=== PATIENT | male | born 1970 | race Caucasian/White ===

== ENCOUNTER 2020-05-02 15:15 | Inpatient (IN) | payer OTHER ==
[~2020-05-02] VITALS: Ht 180.3 cm; Wt 107.1 kg
[~2020-05-02 15:15] MED LIST: ARIP30TA4 PO; BUPR300T49 PO; RAPID FLOW PO; SIMV40TA20 PO
[2020-05-02] MEDS ORDERED: MELOXICAM (15:51)
[2020-05-02] MEDS ORDERED: TAMS-11 PO (15:51)
--- NOTE | 2020-05-02 15:56 | NUR ---
PT REPORTS FALLING ON A ORACIO NAIL ON WEDNESDAY AND WENT TO ON WEDNESDAY TO GET A TETANUS SHOT. PT STATES "I WENT BACK TO TODAY AND THEY GAVE ME A SHOT OF AN ANTIBIOTIC IN MY BUTT". HE ALSO REPORTS THAT SENT HIM TO COME TO THIS ER BECAUSE HE WOULD NEED IV ANTIBIOTICS"
--- NOTE | 2020-05-02 16:46 | NUR ---
PT AMBULATED TO RESTROOM.
[2020-05-02] MEDS ORDERED: SODIUM CHLORIDE FLUSH 10ML SYR IVF ONE (17:00)
[2020-05-02] MEDS ORDERED: VANCOMYCIN PER PHARMACY MC ONE (17:00)
[2020-05-02] MEDS ORDERED: DIPH,PERTUSS(ACELL),TET VAC/PF 0.5 ML IM-VACC ONE (17:00)
[2020-05-02] MEDS ORDERED: VANCOMYCIN 2,500 MG in SODIUM CHLORIDE 0.9% 500 ML IV ONE (17:00)
[2020-05-02 17:21] LABS: ALBUMIN 3.9 g/dL (3.4-5.0); ANION GAP 5 mmol/L (5-15); CHLORIDE 103 mmol/L (98-107); CREATININE 1.21 mg/dL (0.7-1.3)
[2020-05-02 17:23] LABS: BASOPHILS # (AUTO) 0.04 x10^3/uL (0-0.1); BASOPHILS % (AUTO) 0 % (0-1); EOSINOPHILS # (AUTO) 0.04 x10^3/uL (0-0.4); EOSINOPHILS % (AUTO) 0 % (1-7); LYMPHOCYTES % (AUTO) 22 % (22-44); MD NO; MEAN CORPUSCULAR HGB CONC 33.1 g/dL (33.2-36.2); MEAN CORPUSCULAR VOLUME 90.5 fL (81-97); MEAN PLATELET VOLUME 7.2 fL (7.4-10.4); MONOCYTES # (AUTO) 0.94 x10^3/uL (0.2-0.8); MONOCYTES % (AUTO) 8 % (2-9); NEUTROPHILS # (AUTO) 8.78 x10^3/uL (1.8-6.8); NEUTROPHILS % (AUTO) 70 % (42-75); PLATELET COUNT 216 x10^3/uL (130-400); RED BLOOD COUNT 5.21 x10^6/uL (4.38-5.82); RED CELL DISTRIBUTION WIDTH 13.4 % (9.4-14.8)
--- NOTE | 2020-05-02 18:14 | NUR ---
TASK RN: PT MEDICATED PER MAR. VSS, DENIES OTHER NEEDS AT THIS TIME
[2020-05-02] MEDS: SODIUM CHLORIDE 0.9% 1,000 ML IV SCH (18:26)
[2020-05-02] MEDS ORDERED: hydrALAzine 20 MG/ML, 1ML IVPush PRN (18:30)
[2020-05-02] MEDS ORDERED: SODIUM CHLORIDE 0.9% 1,000ML IVBOLUS ONE (18:30)
[2020-05-02] MEDS ORDERED: AMPICILLIN/SULBACTAM 3 GM in SODIUM CHLORIDE 0.9% 100 ML IV ONE (18:30)
[2020-05-02] MEDS ORDERED: DOCUSATE 100 MG CAPSULE PO PRN (18:30)
[2020-05-02] MEDS ORDERED: ONDANSETRON 2MG/ML, 2ML IVPush PRN (18:30)
--- NOTE | 2020-05-02 18:37 | NUR ---
SEPSIS FLOWSHEET STARTED AND PLACED ON CHART.
--- NOTE | 2020-05-02 19:14 | NUR ---
RECEIVED REPORT FROM YRN MACKAY.
[2020-05-02] MEDS: SIMVASTATIN 40 MG TABLET PO SCH (20:39)
[2020-05-02 20:56] VITALS: BP 125/84
[2020-05-02] MEDS ORDERED: TRAZODONE 50MG TABLET PO PRN (21:00)
[2020-05-02] MEDS: AMPICILLIN/SULBACTAM 3 GM in SODIUM CHLORIDE 0.9% 100 ML IV SCH (21:21)
[2020-05-03 00:54] VITALS: BP 137/88
[2020-05-03] MEDS: AMPICILLIN/SULBACTAM 3 GM in SODIUM CHLORIDE 0.9% 100 ML IV SCH ×4 (02:15→22:06)
[2020-05-03] MEDS: SODIUM CHLORIDE 0.9% 1,000 ML IV SCH ×3 (02:23→21:57)
[2020-05-03] MEDS: ACETAMINOPHEN 325 MG TABLET PO PRN ×2 (06:04→15:13)
[2020-05-03 06:21] LABS: BASOPHILS # (AUTO) 0.02 x10^3/uL (0-0.1); BASOPHILS % (AUTO) 0 % (0-1); EOSINOPHILS # (AUTO) 0.17 x10^3/uL (0-0.4); EOSINOPHILS % (AUTO) 2 % (1-7); LYMPHOCYTES # (AUTO) 2.59 x10^3/uL (1-3.4); LYMPHOCYTES % (AUTO) 25 % (22-44); MD NO; MEAN CORPUSCULAR HGB CONC 32.8 g/dL (33.2-36.2); MEAN CORPUSCULAR VOLUME 91.5 fL (81-97); MONOCYTES # (AUTO) 0.94 x10^3/uL (0.2-0.8); MONOCYTES % (AUTO) 9 % (2-9); NEUTROPHILS # (AUTO) 6.58 x10^3/uL (1.8-6.8); NEUTROPHILS % (AUTO) 64 % (42-75); PLATELET COUNT 188 x10^3/uL (130-400); RED BLOOD COUNT 4.86 x10^6/uL (4.38-5.82); RED CELL DISTRIBUTION WIDTH 13.8 % (9.4-14.8)
[2020-05-03 06:32] LABS: ANION GAP 5 mmol/L (5-15); CALCIUM 8.4 mg/dL (8.5-10.1); CHLORIDE 110 mmol/L (98-107); CREATININE 1.04 mg/dL (0.7-1.3)
[2020-05-03 07:02] VITALS: BP 110/72
[2020-05-03] MEDS: ARIPIPRAZOLE 15 MG TABLET PO SCH (08:13)
[2020-05-03] MEDS: TAMSULOSIN 0.4 MG CAP.ER.24H PO SCH (08:13)
[2020-05-03] MEDS: ENOXAPARIN 40 MG/0.4 ML SQ SCH (08:51)
[2020-05-03 12:32] VITALS: BP 142/86
[2020-05-03] MEDS ORDERED: ACETAMINOPHEN 325 MG TABLET PO PRN (19:30)
[2020-05-03] MEDS ORDERED: ONDANSETRON 2MG/ML, 2ML IVPush PRN (19:30)
[2020-05-03] MEDS ORDERED: LABETALOL 5MG/ML, 20ML IV PRN (19:30)
[2020-05-03] MEDS ORDERED: MEPERIDINE/PF 25MG/0.5ML IVPush PRN (19:30)
[2020-05-03] MEDS ORDERED: PROMETHAZINE 25 MG/ML, 1ML IVPush PRN (19:30)
[2020-05-03] MEDS ORDERED: OXYcodone 5 MG/5 ML ORAL.SOL UDC PO PRN (19:30)
[2020-05-03] MEDS ORDERED: HYDROmorphone 1 MG/ML, 1ML INJ IVPush PRN (19:30)
[2020-05-03] MEDS ORDERED: hydrALAzine 20 MG/ML, 1ML IV PRN (19:30)
[2020-05-03] MEDS ORDERED: FENTANYL PF 100 MCG/2ML ONE ×2 (19:35→21:52)
[2020-05-03] MEDS ORDERED: MIDAZOLAM 1 MG/ML, 2ML ONE (19:35)
[2020-05-03] MEDS ORDERED: ONDANSETRON 2MG/ML, 2ML ONE (19:47)
[2020-05-03] MEDS ORDERED: PROPOFOL 10 MG/ML, 20ML ONE (19:47)
[2020-05-03] MEDS: FENTANYL PF 100 MCG/2ML IV PRN ×2 (20:50→21:00)
[2020-05-03 21:49] VITALS: BP 141/87
[2020-05-03] MEDS ORDERED: OXYcodone 5 MG/5 ML ORAL.SOL UDC ONE (21:52)
[2020-05-03] MEDS ORDERED: MEPERIDINE/PF 25MG/ML,1ML ONE (21:52)
[2020-05-03] MEDS: SIMVASTATIN 40 MG TABLET PO SCH (22:05)
[2020-05-03] MEDS: TEMPLATE NON-FORMULARY MED. (Bupropion Hcl** (Wellbutrin Xl**) 300 MG) PO SCH (22:05)
[2020-05-03] MEDS: morphine SULFATE 10 MG/ML, 1ML IVPush PRN (22:15)
[2020-05-04 00:38] VITALS: BP 138/91
[2020-05-04] MEDS: AMPICILLIN/SULBACTAM 3 GM in SODIUM CHLORIDE 0.9% 100 ML IV SCH (04:10)
[2020-05-04] MEDS: morphine SULFATE 10 MG/ML, 1ML IVPush PRN (05:32)
[2020-05-04] MEDS: SODIUM CHLORIDE 0.9% 1,000 ML IV SCH (05:32)
[2020-05-04 06:02] LABS: BASOPHILS # (AUTO) 0.04 x10^3/uL (0-0.1); BASOPHILS % (AUTO) 0 % (0-1); EOSINOPHILS # (AUTO) 0.25 x10^3/uL (0-0.4); EOSINOPHILS % (AUTO) 2 % (1-7); LYMPHOCYTES # (AUTO) 2.51 x10^3/uL (1-3.4); LYMPHOCYTES % (AUTO) 24 % (22-44); MD NO; MEAN CORPUSCULAR HEMOGLOBIN 30.2 pg (27.5-34.5); MEAN CORPUSCULAR HGB CONC 32.8 g/dL (33.2-36.2); MEAN PLATELET VOLUME 7.1 fL (7.4-10.4); MONOCYTES # (AUTO) 0.76 x10^3/uL (0.2-0.8); MONOCYTES % (AUTO) 7 % (2-9); NEUTROPHILS # (AUTO) 7.06 x10^3/uL (1.8-6.8); NEUTROPHILS % (AUTO) 67 % (42-75); PLATELET COUNT 184 x10^3/uL (130-400); RED BLOOD COUNT 4.74 x10^6/uL (4.38-5.82); RED CELL DISTRIBUTION WIDTH 13.4 % (9.4-14.8)
[2020-05-04 07:25] VITALS: BP 137/85
[2020-05-04] MEDS ORDERED: AMOXICILLIN/CLAV 875-125MG TABLET PO SCH (09:00)
[2020-05-04] MEDS: ARIPIPRAZOLE 15 MG TABLET PO SCH (09:04)
[2020-05-04] MEDS: TEMPLATE NON-FORMULARY MED. (Bupropion Hcl** (Wellbutrin Xl**) 300 MG) PO SCH (09:04)
[2020-05-04] MEDS: TAMSULOSIN 0.4 MG CAP.ER.24H PO SCH (09:04)
[2020-05-04] MEDS: ENOXAPARIN 40 MG/0.4 ML SQ SCH (09:04)
[2020-05-04] MEDS: ACETAMINOPHEN 325 MG TABLET PO PRN (11:54)
[2020-05-04] MEDS ORDERED: AMOX1TAB12 PO (12:33)
[2020-05-04 13:01] VITALS: BP 90/56
== END 2020-05-04 15:41 | disposition home or self-care (01) | DRG 872 ==
LOC: ED 17:36 → EDIP 18:27 → 4WST 20:15
PROVIDERS: ADMIT Student in an Organized Health Care Education/Training Program; ATTEND Family Medicine
PROC: 0X9K0ZZ Drainage of Left Hand, Open Approach (ICD-10-PCS; principal; 2020-05-03 18:15)
DX: A41.9 Sepsis, unspecified organism (principal); L02.512 Cutaneous abscess of left hand; L03.114 Cellulitis of left upper limb; E78.5 Hyperlipidemia, unspecified; F20.9 Schizophrenia, unspecified; N40.0 Benign prostatic hyperplasia without lower urinary tract symptoms; F32.9 Major depressive disorder, single episode, unspecified; Z20.828 Contact with and (suspected) exposure to other viral communicable diseases; W01.0XXA Fall on same level from slipping, tripping and stumbling without subsequent striking against object, initial encounter; Z79.899 Other long term (current) drug therapy; Y93.89 Activity, other specified; Y92.89 Other specified places as the place of occurrence of the external cause; Y99.8 Other external cause status; W45.0XXA Nail entering through skin, initial encounter
CPT/HCPCS: 36415; 80048; 82040; 83605; 83735; 85025; 87040; 87070; 87075; 87205; 87635; G0378; J0295; J1650; J2175; J2250; J2405; J2704; J3010; J3370; J2270; J7030; J7040